=== PATIENT | male | born 1960 | race Caucasian/White ===

== ENCOUNTER 2021-01-10 20:43 | Emergency (ER) | payer OTHER ==
[~2021-01-10 20:43] MED LIST: CEPHALEXIN500 MG PO; CLARITIN10 MG PO; FLOMAX 0.4 MG0.4 MG PO; FLONASE ALLER15.8 ML; FLOVENT HFA12 GM INH; LASIX20 MG PO; LOPRESSOR25 MG PO; NORCO 5-325 TA1 EACH PO; PRINIVIL20 MG PO; VENTOLIN HFA IN18 GM INH; ZESTRIL5 MG PO
[2021-01-10 21:40] LABS: BASOPHIL 1.1 % (0-2); EOSINOPHIL 1.6 % (0-5); HCT 33.7 % (42.0-52.0); HGB 11.3 g/dl (13.2-18.0); LYMPHOCYTE 14.9 % (15-48); MCHC 33.5 g/dL (32.0-36.0); MCV 107.3 fL (78.0-100.0); MONOCYTE 15.1 % (0-12); MPV 11.1 fL (6.0-9.5); NEUTROPHIL 66.9 % (41-80); NRBC 0; RBC 3.14 M/uL (4.70-6.00); RDW 14.5 % (11.5-14.0); WBC 5.6 K/uL (4.0-10.5)
[2021-01-10 21:59] LABS: ALBUMIN 1.9 g/dL (3.4-5.0); BILIRUBIN - TOTAL 3.3 mg/dL (0.2-1.0); BUN/CREAT RATIO (CALC) 14.8 RATIO; CREATININE 0.81 mg/dL (0.67-1.17); GLOBULIN (CALCULATION) 5.2 g/dL; POTASSIUM 3.7 mmol/L (3.5-5.1); TOTAL PROTEIN 7.1 g/dL (6.4-8.2)
[2021-01-10 22:00] LABS: INR 1.5 (0.9-1.2); PROTHROMBIN TIME 17.2 SECONDS (11.4-13.6); PTT 31.6 SECONDS (22.2-34.7)
[2021-01-10 22:01] LABS: LACTIC ACID 1.9 mmol/L (0.4-1.9)
[2021-01-10 22:05] LABS: PLT 82 K/uL (150-400)
[2021-01-10 22:06] LABS: PRO-BNP 237 pg/mL (<125)
[2021-01-11 00:41] LABS: BILIRUBIN NEGATIVE (NEGATIVE); BLOOD NEGATIVE Ery/uL (NEGATIVE); CLARITY CLEAR (CLEAR); COLOR YELLOW (YELLOW); GLUCOSE (U) NORMAL (NORMAL); LEUKOCYTES NEGATIVE Leu/uL (NEGATIVE); NITRITE NEGATIVE (NEGATIVE); PROTEIN NEGATIVE (NEGATIVE); UROBILINOGEN >=8.0 mg/dL (0.2-1.0)
== END 2021-01-11 06:20 | disposition other institution (70) ==
LOC: FER 20:43
PROVIDERS: Emergency Medicine Emergency Medical Services
DX: K74.60 Unspecified cirrhosis of liver (principal); E72.20 Disorder of urea cycle metabolism, unspecified; R41.82 Altered mental status, unspecified; K80.20 Calculus of gallbladder without cholecystitis without obstruction; I11.0 Hypertensive heart disease with heart failure; I50.9 Heart failure, unspecified; F17.210 Nicotine dependence, cigarettes, uncomplicated; J44.9 Chronic obstructive pulmonary disease, unspecified; Z85.05 Personal history of malignant neoplasm of liver; Z98.890 Other specified postprocedural states; Z79.899 Other long term (current) drug therapy
CPT/HCPCS: 36415; 70450; 71045; 80053; 81003; 82140; 83605; 83690; 83880; 84145; 84484; 85025; 85610; 85730; 87040; 93005; 96374; G0480; J1940; Q9967

== ENCOUNTER 2021-08-23 11:37 | Emergency (ER) | payer OTHER ==
[~2021-08-23 11:37] MED LIST changes: +FOLIC ACID1 M1 PO; +METOPROLOL SUCC25 MG PO; +OMEPRAZOLE40 MG PO; +OXY-IR 5MG5 MG PO; +VITAMIN B-1100 MG PO; +XIFAXAN550 MG PO; +ZINC50 MG PO
[2021-08-23 12:21] LABS: BILIRUBIN 2+ mg/dL (NEGATIVE); BLOOD 1+ Ery/uL (NEGATIVE); CLARITY CLEAR (CLEAR); COLOR ORANGE (YELLOW); GLUCOSE (U) NORMAL (NORMAL); LEUKOCYTES NEGATIVE Leu/uL (NEGATIVE); NITRITE POSITIVE (NEGATIVE); PROTEIN 1+ mg/dL (NEGATIVE); SPECIFIC GRAVITY 1.015 (1.001-1.030); UROBILINOGEN >=8.0 mg/dL (0.2-1.0)
[2021-08-23 12:22] LABS: HCT 42.6 % (42.0-52.0); HGB 14.9 g/dl (13.2-18.0); MCH 35.1 pg (25.0-31.0); MCV 100.2 fL (78.0-100.0); RBC 4.25 M/uL (4.70-6.00); RDW 13.5 % (11.5-14.0); WBC 4.7 K/uL (4.0-10.5)
[2021-08-23 12:56] LABS: ALBUMIN 2.5 g/dL (3.4-5.0); BUN/CREAT RATIO (CALC) 16.1 RATIO; CREATININE 0.93 mg/dL (0.67-1.17); GLOBULIN (CALCULATION) 4.5 g/dL; POTASSIUM 3.6 mmol/L (3.5-5.1)
[2021-08-23 13:02] LABS: INR 1.4 (0.9-1.2); PROTHROMBIN TIME 16.5 SECONDS (11.8-13.4)
[2021-08-23 13:39] LABS: FT4 (FREE T4) 1.5 ng/dL (0.76-1.46); MAGNESIUM 1.9 mg/dL (1.8-2.4)
[2021-08-23 17:29] LABS: CORONAVIRUS 2019 SARS-COV-2 POSITIVE (NEGATIVE); INFLUENZA A NAA NEGATIVE (NEGATIVE)
== END 2021-08-23 16:18 | disposition left against medical advice (07) ==
LOC: FOD 11:37 → FER 11:37 → EDSTATUS 12:35 → FER 16:18
PROVIDERS: Emergency Medicine; Orthopaedic Surgery
DX: I48.91 Unspecified atrial fibrillation (principal); U07.1 COVID-19; I10 Essential (primary) hypertension; J44.9 Chronic obstructive pulmonary disease, unspecified; Z53.8 Procedure and treatment not carried out for other reasons; Z79.899 Other long term (current) drug therapy
CPT/HCPCS: 36415; 71046; 80053; 81003; 83735; 84439; 84443; 85610; 85730; 93005; G0480; J3411; J3475; J7030; U0002

== ENCOUNTER 2022-01-02 18:29 | Emergency (ER) | payer OTHER ==
[2022-01-02 19:44] LABS: BASOPHIL 1.3 % (0-2); EOSINOPHIL 1.5 % (0-5); HCT 37.3 % (42.0-52.0); HGB 12.4 g/dl (13.2-18.0); LYMPHOCYTE 19.4 % (15-48); MCH 34.8 pg (25.0-31.0); MCHC 33.2 g/dL (32.0-36.0); MCV 104.8 fL (78.0-100.0); MONOCYTE 12.4 % (0-12); MPV 11.9 fL (6.0-9.5); NEUTROPHIL 64.7 % (41-80); NRBC 0; PLT 104 K/uL (150-400); RBC 3.56 M/uL (4.70-6.00)
[2022-01-02 20:04] LABS: ALKALINE PHOSHATASE 148 U/L (46-116); ALT 41 U/L (16-63); AST 83 U/L (15-37); BILIRUBIN - TOTAL 1.6 mg/dL (0.2-1.0); BUN 12 mg/dL (7-18); BUN/CREAT RATIO (CALC) 16.2 RATIO; CHLORIDE 110 mmol/L (98-107); CO2 (BICARBONATE) 22 mmol/L (21-32); CPK 58 U/L (39-308); CREATININE 0.74 mg/dL (0.67-1.17); GLOBULIN (CALCULATION) 4.6 g/dL; GLUCOSE 95 mg/dL (74-106); LIPASE 201 U/L (73-393); TOTAL PROTEIN 6.6 g/dL (6.4-8.2)
[2022-01-02 20:05] LABS: ACETAMINOPHEN (TYLENOL) < 2.0 ug/mL (10.0-30.0)
[2022-01-02 20:15] LABS: INR 1.59 (0.9-1.2); PROTHROMBIN TIME 18.2 SECONDS (11.8-13.4); PTT 32.2 SECONDS (24.4-34.7)
== END 2022-01-02 21:20 | disposition home or self-care (01) ==
LOC: FER 18:29
PROVIDERS: Internal Medicine
DX: F10.129 Alcohol abuse with intoxication, unspecified (principal); R74.8 Abnormal levels of other serum enzymes; I50.9 Heart failure, unspecified; Z28.310 Unvaccinated for COVID-19; Z95.5 Presence of coronary angioplasty implant and graft; Z79.82 Long term (current) use of aspirin; Z79.899 Other long term (current) drug therapy; Y90.7 Blood alcohol level of 200-239 mg/100 ml
CPT/HCPCS: 36415; 70450; 71250; 80053; 82550; 83605; 83690; 84484; 85025; 85610; 85730; 93005; G0480; J7120

== ENCOUNTER 2022-01-23 18:38 | Inpatient (IN) | payer OTHER ==
[~2022-01-23] VITALS: Ht 177.8 cm; Wt 82.7 kg
[2022-01-23 19:49] LABS: BASOPHIL 0.3 % (0-2); EOSINOPHIL 0 % (0-5); HCT 40.8 % (42.0-52.0); HGB 14.2 g/dl (13.2-18.0); LYMPHOCYTE 2.6 % (15-48); MCH 34.8 pg (25.0-31.0); MCHC 34.8 g/dL (32.0-36.0); MONOCYTE 7.1 % (0-12); MPV 11.5 fL (6.0-9.5); NEUTROPHIL 89.5 % (41-80); NRBC 0; PLT 102 K/uL (150-400); RBC 4.08 M/uL (4.70-6.00); RDW 14.9 % (11.5-14.0); WBC 17.8 K/uL (4.0-10.5)
[2022-01-23 19:54] LABS: INR 1.77 (0.9-1.2); PROTHROMBIN TIME 19.8 SECONDS (11.8-13.4); PTT 33.2 SECONDS (24.4-34.7)
[2022-01-23 20:17] LABS: LACTIC ACID 3.1 mmol/L (0.4-1.9)
[2022-01-23 20:31] LABS: ACETAMINOPHEN (TYLENOL) < 2.0 ug/mL (10.0-30.0); ALBUMIN 2.2 g/dL (3.4-5.0); ALKALINE PHOSHATASE 136 U/L (46-116); ALT 42 U/L (16-63); AST 63 U/L (15-37); BILIRUBIN - TOTAL 3.5 mg/dL (0.2-1.0); BUN 19 mg/dL (7-18); BUN/CREAT RATIO (CALC) 30.2 RATIO; CHLORIDE 102 mmol/L (98-107); CO2 (BICARBONATE) 22 mmol/L (21-32); CREATININE 0.63 mg/dL (0.67-1.17); GLOBULIN (CALCULATION) 5.1 g/dL; GLUCOSE 168 mg/dL (74-106); POTASSIUM 3.4 mmol/L (3.5-5.1); TOTAL PROTEIN 7.3 g/dL (6.4-8.2)
[2022-01-23 22:24] LABS: BILIRUBIN 1+ mg/dL (NEGATIVE); BLOOD 2+ Ery/uL (NEGATIVE); CLARITY CLEAR (CLEAR); COLOR YELLOW (YELLOW); GLUCOSE (U) NORMAL (NORMAL); LEUKOCYTES NEGATIVE Leu/uL (NEGATIVE); NITRITE NEGATIVE (NEGATIVE); PROTEIN 2+ mg/dL (NEGATIVE); SPECIFIC GRAVITY 1.025 (1.001-1.030); pH 6.5 (5.0-9.0)
[2022-01-23 22:30] LABS: BACTERIA 1+; MUCOUS MODERATE; URINARY RBC 20-50; URINARY WBC RARE
[2022-01-23 22:31] LABS: AMPHETAMINES POSITIVE (NEGATIVE); BARBITURATES NEGATIVE (NEGATIVE); ECSTASY (MDMA) POSITIVE (NEGATIVE); MARIJUANA (THC) NEGATIVE (NEGATIVE); METHADONE NEGATIVE (NEGATIVE); OPIATES NEGATIVE (NEGATIVE); OXYCODONE NEGATIVE (NEGATIVE)
[2022-01-23 22:55] LABS: CORONAVIRUS 2019 SARS-COV-2 NEGATIVE (NEGATIVE); INFLUENZA A NAA NEGATIVE (NEGATIVE)
[2022-01-24] MEDS ORDERED: ELIQUIS5 MG PO (04:27)
[2022-01-24] MEDS ORDERED: LYMEPAK100 MG PO (04:29)
[2022-01-24] MEDS ORDERED: PROAIR HFA8.5 GM INH (04:30)
[2022-01-24] MEDS ORDERED: KLOR-CON M 1010 MEQ PO (04:31)
[2022-01-24 11:53] LABS: BILIRUBIN 1+ mg/dL (NEGATIVE); BLOOD 3+ Ery/uL (NEGATIVE); CLARITY CLEAR (CLEAR); COLOR YELLOW (YELLOW); GLUCOSE (U) NORMAL (NORMAL); LEUKOCYTES NEGATIVE Leu/uL (NEGATIVE); NITRITE NEGATIVE (NEGATIVE); PROTEIN 1+ mg/dL (NEGATIVE); SPECIFIC GRAVITY >=1.030 (1.001-1.030)
[2022-01-24 12:23] LABS: MUCOUS TRACE; SQUAMOUS EPITHELIAL CELLS RARE; URINARY RBC 20-50
[2022-01-25 06:25] LABS: HCT 39.2 % (42.0-52.0); HGB 13.4 g/dl (13.2-18.0); MCH 34.5 pg (25.0-31.0); MCHC 34.2 g/dL (32.0-36.0); MPV 11.4 fL (6.0-9.5); RBC 3.88 M/uL (4.70-6.00); RDW 15.2 % (11.5-14.0); WBC 8.5 K/uL (4.0-10.5)
--- NOTE | 2022-01-25 06:25 | NUR ---
BAY ([employer] IN [employer]) TOOK HOME PT. BELONGING BAG WITH CLOTHES AND WALLET IN IT. ER,RN
[2022-01-25 06:49] LABS: ALBUMIN 1.7 g/dL (3.4-5.0); BILIRUBIN - TOTAL 2.9 mg/dL (0.2-1.0); BUN/CREAT RATIO (CALC) 40.9 RATIO; CREATININE 0.66 mg/dL (0.67-1.17); GLOBULIN (CALCULATION) 4.3 g/dL; MAGNESIUM 2.1 mg/dL (1.8-2.4); POTASSIUM 4.1 mmol/L (3.5-5.1)
--- NOTE | 2022-01-25 18:43 | NUR ---
AT APX 1230, WHILE PT EATING LUNCH, HR ON MONITOR INCREASED TO 180S-LOW 200S. MD NOTIFIED AND ORDERED STAT EKG WHICH SHOWED AFIB RVR. PT GIVEN ADENOSINE X 2 WITH NO RESULTS. CARDIZEM GTT STARTED PER ORDERS. PT REMAINED ASYMPTOMATIC THROUGHOUT EPISODE AND OTHER VITALS REMAINED STABLE.
--- NOTE | 2022-01-26 00:01 | NUR ---
01/25/2022 @ 2310 - CALL FROM PATRIZIA IN LAB TO REPORT + BC W/ GRAM + COCCI AND CLUSTERS. REPORTED TO TELEHEALTH MD OSMIN DUNAWAY @ 1676. nO FURTHER ORDERS GIVEN AT THIS TIME. 01/25/2022 @2342 VANC TROUGH RESULT (10). [facility] CALLED BY Odilia LIRIANO RN AND STATED THAT IT WAS OKAY TO INFUSE THE VANC ABX DOSE ORDERED FOR 2300.
[2022-01-26 04:07] LABS: BASOPHIL 0.5 % (0-2); HCT 39.8 % (42.0-52.0); HGB 13.7 g/dl (13.2-18.0); LYMPHOCYTE 14.3 % (15-48); MCH 34.4 pg (25.0-31.0); MCHC 34.4 g/dL (32.0-36.0); MONOCYTE 15.2 % (0-12); MPV 11.8 fL (6.0-9.5); NEUTROPHIL 67.3 % (41-80); NRBC 0; RBC 3.98 M/uL (4.70-6.00); WBC 8.3 K/uL (4.0-10.5)
[2022-01-26 04:09] LABS: PLT 89 K/uL (150-400)
[2022-01-26 04:34] LABS: BUN/CREAT RATIO (CALC) 39.7 RATIO; CREATININE 0.63 mg/dL (0.67-1.17); POTASSIUM 4.1 mmol/L (3.5-5.1)
--- NOTE | 2022-01-26 12:54 | NUR ---
01/26/22 Mr. Macedo reports to live with his sycuy-nn-fec and rfkisqw-og-mbw, Stephanie and Alejandro Patel. 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 Cris Peraza is his PCP. 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 Mr. Macedo reports to drink approximately 6 beers per day. He denies any withdrawal symptoms in the absence of ETOH. He denies drug use. Mr. Macedo reports to have used marijuanan 6 months ago. He reports to have used cocaine in the 80ties. He is not interested in cessation from ETOH and declined information re: AA meetings. Patient denies depression or anxiety.
== END 2022-01-26 15:30 | disposition other institution (70) | DRG 871 ==
LOC: FER 18:38 → FICU 01-24 01:50 → FTCU 01-24 17:52
PROVIDERS: Emergency Medicine; Family Medicine; Hospitalist; ADMIT Internal Medicine
PROC: 3E03329 Introduction of Other Anti-infective into Peripheral Vein, Percutaneous Approach (ICD-10-PCS; 2022-01-23)
PROC: B24BZZZ Ultrasonography of Heart with Aorta (ICD-10-PCS; principal; 2022-01-25)
DX: A41.01 Sepsis due to Methicillin susceptible Staphylococcus aureus (principal); I33.0 Acute and subacute infective endocarditis; G92.8 Other toxic encephalopathy; K72.00 Acute and subacute hepatic failure without coma; K76.6 Portal hypertension; I50.32 Chronic diastolic (congestive) heart failure; R65.20 Severe sepsis without septic shock; K74.60 Unspecified cirrhosis of liver; Z20.822 Contact with and (suspected) exposure to COVID-19; F10.10 Alcohol abuse, uncomplicated; F15.10 Other stimulant abuse, uncomplicated; I11.0 Hypertensive heart disease with heart failure; I48.0 Paroxysmal atrial fibrillation; F16.10 Hallucinogen abuse, uncomplicated; I25.10 Atherosclerotic heart disease of native coronary artery without angina pectoris; K21.9 Gastro-esophageal reflux disease without esophagitis; B19.20 Unspecified viral hepatitis C without hepatic coma; D69.6 Thrombocytopenia, unspecified; R73.9 Hyperglycemia, unspecified; R31.9 Hematuria, unspecified; I35.0 Nonrheumatic aortic (valve) stenosis; Z85.828 Personal history of other malignant neoplasm of skin; Z79.899 Other long term (current) drug therapy
CPT/HCPCS: 36415; 36600; 70450; 71045; 71250; 74018; 80048; 80053; 80202; 80305; 81001; 82140; 82803; 83036; 83605; 83735; 83880; 84145; 84484; 85025; 85610; 85730; 86803; 87040; 87077; 87186; 93005; 94010; 96374; 96375; C9113; G0480; J0153; J0692; J0696; J3411; J3475; J7030; J7050; U0002